=== PATIENT | male | born 1980 | race American Indian/Alaskan Native ===

== ENCOUNTER 2017-02-23 10:51 | Emergency (ER) | payer MEDICARE ==
[2017-02-23] MEDS ORDERED: DUONEB *Not for PRN Use IH ONE (12:57)
[2017-02-23] MEDS ORDERED: ROCEPHIN IM ONE (12:58)
[2017-02-23] MEDS ORDERED: XYLOCAINE 1% MPF 5 mL INFILTRATI ONE (12:58)
--- NOTE | 2017-02-23 13:03 | Emergency Department Report ---
Minor Respiratory - HPI Chief Complaint: Upper Respiratory Infection Stated Complaint: FLU LIKE SYMPTOMS/HEADACHE Time Seen by Provider: 02/23/17 12:44 Duration: 3 Days Pain Location: Throat, Chest Severity: moderate Minor Respiratory: Yes Able to Tolerate Fluids, Yes Cough, Yes Shortness of Breath, Yes Fever (subj), No Rhinorrhea, No Sore Throat, No Ear Pain, No Sick Contacts, No Hemoptysis, No Chest Pain ED Review of Systems ROS: Stated complaint: FLU LIKE SYMPTOMS/HEADACHE Other details as noted in HPI Comment: All other systems reviewed and negative Constitutional: fever (subj) ENT: other (sinus congestion) Respiratory: cough, wheezing (out of rx for his asthma) Neurological: headache ED Past Medical Hx - Past Medical History Previous Medical History?: Yes Hx Hypertension: No Hx CVA: No Hx Heart Attack/AMI: No Hx Congestive Heart Failure: No Hx Diabetes: No Hx Deep Vein Thrombosis: No Hx Pulmonary Embolism: No Hx GERD: No Hx Liver Disease: No Hx Renal Disease: No Hx Sickle Cell Disease: No Hx Arthritis: No Hx Headaches / Migraines: No Hx Seizures: No Hx Asthma: Yes - Surgical History Past Surgical History?: No - Social History Smoking Status: Current Every Day Smoker Substance Use Type: Alcohol - Medications Home Medications: Home Medications Medication Instructions Recorded Confirmed Last Taken Type Albuterol *Only Ed* [Proventil 2.5 mg IH Q4H PRN #1 box 02/23/17 Unknown Rx 0.5% NEBS] Albuterol Sulfate [Proair 90 mcg IH Q4HR PRN #2 aer.pow.ba 02/23/17 Unknown Rx Respiclick] Amoxicillin 500 mg PO BID #20 capsule 02/23/17 Unknown Rx Fluticasone [Flonase] 1 spray NS QDAY #1 bottle 02/23/17 Unknown Rx Fluticasone/Salmeterol [Advair 1 puff IH BID #1 disk.w.dev 02/23/17 Unknown Rx Diskus 250-50 mcg] predniSONE [Deltasone] 20 mg PO DAILY #5 tablet 02/23/17 Unknown Rx Minor Respiratory Exam - Exam General: Vital signs noted. No distress. Alert and acting appropriately. HEENT: Yes Pharyngeal Erythema, Yes Moist Mucous Membranes, Yes Frontal Tenderness, Yes Maxillary Tenderness, No Pharyngeal Exudates, No Rhinorrhea, No Conjuctival Injection Ear: Neither TM Bulge, Neither TM Erythema, Neither EAC Pain, Neither EAC Discharge Neck: Yes Supple, No Adenopathy Lungs: Yes Good Air Exchange, Yes Wheezes, No Ronchi, No Stridor, No Cough, No Labored Respirations, No Retractions, No Use of Accessory Muscles, No Other Abnormal Lung Sounds Heart: Yes Regular, No Murmur Abdomen: Yes Normal Bowel Sounds, No Tenderness, No Peritoneal Signs Skin: No Rash, No Edema Neurologic: Alert and oriented, no deficits. Musculoskeletal: Unremarkable. ED Course Vital Signs 02/23/17 12:17 Temperature 98.6 F Pulse Rate 82 Respiratory 20 Rate Blood Pressure 138/85 Blood Pressure 138/85 [Right] O2 Sat by Pulse 100 Oximetry - Reevaluation(s) Reevaluation #1: 02/23/17 13:54 feels better p rt and rx vss non toxic non ill taking po ambulating dc home w dc poc ED Medical Decision Making - Medical Decision Making see note - Differential Diagnosis asthma ae w or wo urti/ pna Critical care attestation.: If time is entered above; I have spent that time in minutes in the direct care of this critically ill patient, excluding procedure time. ED Disposition Clinical Impression: Asthma exacerbation attacks, URTI (acute upper respiratory infection), Medication refill Disposition: DC-01 TO HOME OR SELFCARE Is pt being admited?: No Does the pt Need Aspirin: No Condition: Stable Instructions: Asthma (ED) Additional Instructions: rest hydrate well meds as ordered today follow up with PCP next week to be sure you are improved delsym is a good over the counter cough med motrin or tylenol for fever return to er for worsening of wheezing or fever that will not come down with motrin or tylenol Prescriptions: Albuterol *Only Ed* [Proventil 0.5% NEBS] 2.5 mg IH Q4H PRN #1 box PRN Reason: Wheezing Albuterol Sulfate [Proair Respiclick] 90 mcg IH Q4HR PRN #2 aer.pow.ba PRN Reason: Wheezing Amoxicillin 500 mg PO BID #20 capsule Fluticasone [Flonase] 1 spray NS QDAY #1 bottle Fluticasone/Salmeterol [Advair Diskus 250-50 mcg] 1 puff IH BID #1 disk.w.dev predniSONE [Deltasone] 20 mg PO DAILY #5 tablet Referrals: PRIMARY CAREMD [Primary Care Provider] - 3-5 Days RAHEEM MARIO MD [Staff Physician] - 3-5 Days Forms: Work/School Release Form(ED) Time of Disposition: 13:00
[2017-02-23 14:27] VITALS: BP 122/82
== END 2017-02-23 14:26 | disposition home or self-care (01) ==
LOC: ED 10:51
DX: J45.901 Unspecified asthma with (acute) exacerbation (principal); J06.9 Acute upper respiratory infection, unspecified; F17.200 Nicotine dependence, unspecified, uncomplicated
CPT/HCPCS: 94640; 96372; 96374; 99282; J0696; J2930

== ENCOUNTER 2017-03-14 19:20 | Emergency (ER) | payer MEDICARE ==
[2017-03-14 19:26] VITALS: BP 129/75
[2017-03-14] MEDS ORDERED: DUONEB *Not for PRN Use IH ONE (23:25)
[2017-03-14] MEDS ORDERED: ROBITUSSIN PO ONE (23:25)
[2017-03-14] MEDS ORDERED: DELTASONE PO ONE (23:25)
--- NOTE | 2017-03-14 23:42 | Emergency Department Report ---
HPI - General Chief Complaint: Upper Respiratory Infection Time Seen by Provider: 03/14/17 23:16 - HPI HPI: Patient is a 36-year-old male with a history of asthma who presents to ED complaining that while he was at work today he started to feel like his abdomen was flaring up. Patient states his had intermittent dry cough for the past 2-3 days. Patient states he takes albuterol inhaler at home. Patient states he came in from work so he was able to go home and take his inhalers. Patient states he is able to breathe okay he has no shortness of breath this coughing intermittently. He denies fever/chills/nausea vomiting/chest pain or shortness of breath. ED Past Medical Hx - Past Medical History Hx Hypertension: No Hx CVA: No Hx Heart Attack/AMI: No Hx Congestive Heart Failure: No Hx Diabetes: No Hx Deep Vein Thrombosis: No Hx Pulmonary Embolism: No Hx GERD: No Hx Liver Disease: No Hx Renal Disease: No Hx Sickle Cell Disease: No Hx Arthritis: No Hx Headaches / Migraines: No Hx Seizures: No Hx Asthma: Yes - Social History Smoking Status: Never Smoker Substance Use Type: Alcohol - Medications Home Medications: Home Medications Medication Instructions Recorded Confirmed Last Taken Type Albuterol *Only Ed* [Proventil 2.5 mg IH Q4H PRN #1 box 02/23/17 Unknown Rx 0.5% NEBS] Albuterol Sulfate [Proair 90 mcg IH Q4HR PRN #2 aer.pow.ba 02/23/17 Unknown Rx Respiclick] Amoxicillin 500 mg PO BID #20 capsule 02/23/17 Unknown Rx Fluticasone [Flonase] 1 spray NS QDAY #1 bottle 02/23/17 Unknown Rx Fluticasone/Salmeterol [Advair 1 puff IH BID #1 disk.w.dev 02/23/17 Unknown Rx Diskus 250-50 mcg] predniSONE [Deltasone] 20 mg PO DAILY #5 tablet 02/23/17 Unknown Rx Benzonatate [Tessalon Perles] 100 mg PO Q8HR #20 capsule 03/14/17 Unknown Rx Prednisone [predniSONE 10 mg 10 mg PO .TAPER #1 tab.ds.pk 03/14/17 Unknown Rx (6-Day Pack, 21 Tabs)] ED Review of Systems ROS: Stated complaint: ASTHMA Other details as noted in HPI Constitutional: denies: chills, fever Eyes: denies: eye pain, eye discharge, vision change ENT: denies: ear pain, throat pain Respiratory: cough. denies: shortness of breath, wheezing Cardiovascular: denies: chest pain, palpitations Endocrine: no symptoms reported Gastrointestinal: denies: abdominal pain, nausea, diarrhea Genitourinary: denies: urgency, dysuria Musculoskeletal: denies: back pain, joint swelling, arthralgia Skin: denies: rash, lesions Neurological: denies: headache, weakness, paresthesias Psychiatric: denies: anxiety, depression Hematological/Lymphatic: denies: easy bleeding, easy bruising Physical Exam - Physical Exam Vital Signs: Vital Signs 03/14/17 19:23 Temperature 98.2 F Pulse Rate 84 Respiratory 16 Rate Blood Pressure 129/75 O2 Sat by Pulse 99 Oximetry Physical Exam: GENERAL: Alert and oriented x3, no apparent distress, Normal Gait, atraumatic. HEAD: Head is normocephalic and a-traumatic. EYES: Extra ocular muscles are intact. Pupils are equal, round, and reactive to light and accommodation. NOSE: Nose symetrical, Nontender,Nares appeared normal. MOUTH:Mouth is well hydrated and without lesions. Tonsils nonerythematous or swollen, Uvula midline, Tongue not elevated. Mucous membranes are moist. Posterior pharynx clear, no exudate or lesions. Patent airways. NECK: Supple. Non edematous, No lymphadenopathy or thyromegaly. No C-spine tenderness LUNGS: Symetrical with respiration, mild wheezing, no rales or crackles, CTAB. HEART: S1, S2 present, regular rate and rhythm without murmur, no rubs, no gallops. Non tender to palpation BACK: Full range of motion, no spinal tenderness, nontender to palpation. SKIN: Warm and dry, No lesions, No ulceration or induration present. ED Course Vital Signs 03/14/17 19:23 Temperature 98.2 F Pulse Rate 84 Respiratory 16 Rate Blood Pressure 129/75 O2 Sat by Pulse 99 Oximetry ED Medical Decision Making - Medical Decision Making 36-year-old male present with asthma bronchitis ED course: Patient received DuoNeb, prednisone, cough suppressant Patient is not in any acute or respiratory distress during ED stay The patient was given prednisone as part of home medications Discussed the patient to continue albuterol as needed at home. Vital signs are normal. I discussed with the patient to follow up with his primary care physician. Patient alert and oriented 3, has no neurological deficit and understands all instructions. Critical care attestation.: If time is entered above; I have spent that time in minutes in the direct care of this critically ill patient, excluding procedure time. ED Disposition Clinical Impression: Bronchitis Asthma Qualifiers: Asthma severity: moderate Asthma persistence: persistent Asthma complication type: uncomplicated Qualified Code(s): J45.40 - Moderate persistent asthma, uncomplicated Disposition: DC- TO HOME OR SELFCARE Is pt being admited?: No Does the pt Need Aspirin: No Condition: Stable Instructions: Asthma (ED), Chronic Bronchitis (ED) Additional Instructions: Make sure to follow up with the primary care physician as discussed. Take all your medications as you've been prescribed. If you have any worsening symptoms or develop new symptoms please return to ED immediately. Prescriptions: Benzonatate [Tessalon Perles] 100 mg PO Q8HR #20 capsule Prednisone [predniSONE 10 mg (6-Day Pack, 21 Tabs)] 10 mg PO .TAPER #1 tab.ds.pk Referrals: EARL UNGER MD [Primary Care Provider] - 3-5 Days [facility] [Outside] - 3-5 Days [facility] [Outside] - 3-5 Days Forms: Work/School Release Form(ED) Time of Disposition: 23:42
== END 2017-03-14 23:55 | disposition home or self-care (01) ==
LOC: ED 19:20
DX: J45.40 Moderate persistent asthma, uncomplicated (principal); J40 Bronchitis, not specified as acute or chronic
CPT/HCPCS: 94640; 99283; J7512